=== PATIENT | male | born 1965 | race African-American/Black ===

== ENCOUNTER 2022-10-30 14:32 | Emergency (ER) | payer OTHER ==
[2022-10-30] MEDS ORDERED: IBUPROFEN 400 MG TABLET (FP) PO ONE (14:40)
[2022-10-30] MEDS ORDERED: ACETAMINOPHEN 500 MG TABLET (FP) PO ONE (14:40)
[2022-10-30 14:42] VITALS: BP 131/82; PULSE 90; RESP 20; TEMP 98.8; BMI 29.9
[2022-10-30] MEDS ORDERED: diazePAM CARPU-JECT 10 MG/2 ML DISP.SYRIN IVPUSH ONE (16:00)
[2022-10-30] MEDS ORDERED: morphine SULFATE 4 MG/ML VIAL IVPUSH ONE (16:00)
[2022-10-30] MEDS ORDERED: diazePAM CARPU-JECT 10 MG/2 ML DISP.SYRIN ONE (16:19)
[2022-10-30] MEDS ORDERED: morphine SULFATE 4 MG/ML VIAL ONE (16:19)
== END 2022-10-30 18:13 | disposition home or self-care (01) ==
LOC: JERFT 14:32 → JER 14:32
PROC: 0RSJXZZ Reposition Right Shoulder Joint, External Approach (ICD-10-PCS; principal; 2022-10-30)
PROC: 3E033GC Introduction of Other Therapeutic Substance into Peripheral Vein, Percutaneous Approach (ICD-10-PCS; 2022-10-30)
DX: S43.004A Unspecified dislocation of right shoulder joint, initial encounter (principal); Y99.8 Other external cause status
CPT/HCPCS: 71046-TC-FY; 73000-TC-RT-FY; 73030-TC-RT-FY; 99284-25